=== PATIENT | female | born 1950 | race Caucasian/White ===

== ENCOUNTER 2017-06-11 08:09 | Emergency (ER) | payer BC ==
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
[2017-06-11] MEDS ORDERED: Ibuprofen TAB* 600 MG PO ONE (08:38)
--- NOTE | 2017-06-11 09:39 | RAD ---
INDICATION: Headaches COMPARISON: None TECHNIQUE: Noncontrast axial source images were acquired from the skull base to the vertex. FINDINGS: Ventricles/sulci: The ventricles and cisterns are normal in size and configuration for age. Brain parenchyma: There is no focal parenchymal finding, evidence of intracranial mass, or intracranial mass effect. Intracranial hemorrhage:None. Extra-axial spaces: There are no abnormal extra axial fluid collections or evidence of extra-axial mass. Calvarium: There is no calvarial fracture or other calvarial abnormality. Scalp: There is no evidence of scalp or extracalvarial soft tissue abnormality. Paranasal sinuses/mastoid: The paranasal sinuses and mastoid air cells are clear. Other: None. IMPRESSION: NEGATIVE EXAMINATION
--- NOTE | 2017-06-11 09:43 | RAD ---
HISTORY: Pain, subacute trauma COMPARISONS: None TECHNIQUE: Multiple contiguous axial CT scans were obtained of the cervical spine without intravenous contrast, with coronal and sagittal multiplanar reformations. FINDINGS: BRAIN: The visualized brain is unremarkable CENTRAL CANAL: Evaluation of the central canal is limited on CT technique; however, there is no obvious canalicular mass or epidural hemorrhage. ALIGNMENT: There is straightening of the cervical lordosis. VERTEBRAL BODIES: There is multilevel anterolateral marginal osteophyte formation with sclerotic reactive end plate changes at C4-C5, C5-C6, and C6-C7. JOINTS: There is diffuse uncovertebral osteophytes. There is mild facet osteoarthritis. MUSCULATURE: Unremarkable INTERVERTEBRAL DISCS: There is diffuse loss of intervertebral disc height. AXIAL IMAGES: C2-C3: There is no osseous neural foraminal narrowing or central canal stenosis. C3-C4: There is bilateral uncovertebral hypertrophy. There is moderate right neural foraminal area. There is no osseous central canal stenosis. C4-C5: There is bilateral uncovertebral hypertrophy. There is severe right and mild left neural foraminal and. There is no osseous central canal stenosis. There is bilateral uncovertebral and facet hypertrophy. There is severe right and moderate left neural foraminal narrowing. There is no osseous central canal stenosis. C5-C6: There is bilateral uncovertebral facet hypertrophy. There is severe left neural foraminal area. There is no osseous central canal stenosis. C6-C7: There is no osseous neural foraminal narrowing or central canal stenosis. C7-T1: There is no osseous neural foraminal narrowing or central canal stenosis. SOFT TISSUES: The thyroid gland is heterogeneous and diffusely enlarged. OTHER: None. IMPRESSION: 1. DEGENERATIVE DISC DISEASE AND OSTEOARTHRITIS. 2. THERE IS MULTILEVEL NEURAL FORAMINAL NARROWING DESCRIBED ABOVE. THERE IS NO OSSEOUS CENTRAL CANAL STENOSIS. 3. NO ACUTE OSSEOUS INJURY TO THE CERVICAL SPINE. 4. ENLARGED, HETEROGENEOUS THYROID
[2017-06-11 10:13] VITALS: BP 150/80
== END 2017-06-11 10:13 | disposition home or self-care (01) ==
LOC: UCCORT 08:09
DX: S16.1XXA Strain of muscle, fascia and tendon at neck level, initial encounter (principal); S06.0X0A Concussion without loss of consciousness, initial encounter; Y04.2XXA Assault by strike against or bumped into by another person, initial encounter; Y92.9 Unspecified place or not applicable; M47.812 Spondylosis without myelopathy or radiculopathy, cervical region; G54.2 Cervical root disorders, not elsewhere classified; E04.9 Nontoxic goiter, unspecified; Z88.0 Allergy status to penicillin; Z88.2 Allergy status to sulfonamides
CPT/HCPCS: 70450; 72125; 99202; A9270-GY; G0463

== ENCOUNTER 2017-06-17 11:30 | Emergency (ER) | payer BC ==
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
[2017-06-17] MEDS ORDERED: Ibuprofen TAB* 600 MG PO ONE (14:01)
[2017-06-17 14:09] VITALS: BP 182/89
== END 2017-06-17 14:14 | disposition home or self-care (01) ==
LOC: UCCORT 11:30
DX: S13.9XXD Sprain of joints and ligaments of unspecified parts of neck, subsequent encounter (principal); Y04.2XXD Assault by strike against or bumped into by another person, subsequent encounter; M62.838 Other muscle spasm; Z88.0 Allergy status to penicillin; Z88.2 Allergy status to sulfonamides
CPT/HCPCS: 93005; 99212; A9270-GY; G0463

== ENCOUNTER 2018-06-10 12:13 | Emergency (ER) | payer MEDICARE, BC ==
--- OUTSIDE RECORDS SUMMARY | 2018-06-10 12:52 | XMS REPORT | Continuity of Care Document ---
:1950 External Reference #:[id number] Author Name Julianne Soto Care Team Providers Name Role Phone Julia Null MD Primary Care Physician Unavailable Payers Type Date Identification Numbers Payment Provider Subscriber Effective: 2017 Policy Number: [id number] [employer] Rebecca Carpenter Onset: 2017 Group Number: [id number] [address] [id number] Group Name: fax: [phone] [place] [address] PayID: [id number] Policy Number: [id number] [employer] Rebecca Carpenter PayID: [id number] [address] [address] [place] [address] Advance Directives Description No Information Available Problems Date Description Provider Status Onset: 07/24/2017 Chest pain Efren Auguste M.D., [facility], [facility] Active Family History Date Family Member(s) Problem(s) Comments General sister-HTN Father Anemia and thrombocytopenia Mother Lung Cancer First Brother Hypertension Second Brother Hypertension Social History Type Date Description Comments Sex Unknown Marital Status Lives With Occupation Medically Retired ETOH Use Rarely consumes alcohol Tobacco Use Start: Unknown Patient has never smoked Recreational Drug Use Denies Drug Use Smoking Status Reviewed: 10/29/17 Patient has never smoked Exercise Type/Frequency Exercises regularly isometric routine. walking the dog. Allergies, Adverse Reactions, Alerts Date Description Reaction Status Severity Comments 07/24/2017 Penicillin Active and derivatives of PCN-Hives and swelling 07/24/2017 Sulfa Antibiotics Active 07/24/2017 Isosorbide Active headache Medications Medication Date Status Form Strength Qnty SIG Indications Ordering Provider Vitamin E 0 Active Tablets 400Unit 1 po Unknown 000 daily Vitamin C Active Tablets 500mg 1 by Unknown 000 mouth every day Vitamin B12 Active Tablets ER 1000mcg 1 by Unknown 000 mouth every day Calcium + D + K Active Tablets 750-500-40 1 by Unknown + Zinc 000 mg-Unt-mcg mouth every day Nitroglycerin Hx Tablets 0.4mg 1 sl Unknown 000 - Sub q5mins x3 as 018 needed for chest pain Diltiazem CD Hx Caps ER 120mg 1 by Unknown 000 - 24HR mouth every 018 day Aspirin [address] 81mg 1 by Unknown 000 - mouth every 018 day Pantoprazole Hx Tablets DR 40mg 1 by Unknown Sodium 000 - mouth every 018 day Sertraline HCL Hx Tablets 25mg 1 by Unknown 000 - mouth every 018 day Isosorbide Hx Tablets 30mg 1 by Unknown Dinitrate 000 - mouth every 018 day Acetaminophen Hx Tablets 500mg 1 tabs 3 Unknown Extra Strength 000 - to 4 times 018 daily as needed for pain Ibuprofen Hx Tablets 200mg 1 or 2 Unknown 000 - po as needed 018 Calcium 500 + D Hx Tablets 500-200mg- 1 by Unknown 000 - Unit mouth daily 018 Immunizations Description No Information Available Vital Signs Date Vital Result Comment 05/24/2018 2:24pm Height 60.75 inches 5'0.75" Weight 126.00 lb Heart Rate 68 /min BP Systolic Sitting 136 mmHg BP Diastolic Sitting 92 mmHg Respiratory Rate 12 /min no respiratory difficulties Pain Level 3 BMI (Body Mass Index) 24.0 kg/m2 10/29/2017 9:59am Height 60.25 inches 5'0.25" Weight 124.00 lb Heart Rate 74 /min BP Systolic Sitting 138 mmHg BP Diastolic Sitting 74 mmHg Respiratory Rate 16 /min Pain Level 0 disorientation O2 % BldC Oximetry 98 % Ra BMI (Body Mass Index) 24.0 kg/m2 07/24/2017 9:55am Height 60.25 inches 5'0.25" Weight 124.00 lb Heart Rate 64 /min regular BP Systolic 194 mmHg LA Regular Cuff BP Diastolic 98 mmHg LA Regular Cuff BP Systolic Sitting 178 mmHg Ra Regular Cuff BP Diastolic Sitting 92 mmHg Ra Regular Cuff BP Systolic Standing 170 mmHg Ra Regular Cuff BP Diastolic Standing 98 mmHg Ra Regular Cuff Respiratory Rate 12 /min no respiratory difficulties Pain Level 1 O2 % BldC Oximetry 98 % BMI (Body Mass Index) 24.0 kg/m2 Results Description No Information Available Procedures Date Code Description Status 07/24/2017 27584 EKG Tracing & Interpretation Completed Encounters Type Date Location Provider Dx Diagnosis Office Visit 10/29/2017 [place] Janusz Alcantar, M54.2 Cervicalgia 10:00a Neurologic [facility] Of Hermelinda Warren R42 Dizziness and giddiness S19.89xS Oth injuries of other specified part of neck, sequela Office Visit 07/24/2017 10:00a Cardiology Efren Jacobsen R07.9 Chest pain, Services Of Kelvin Auguste M.D., unspecified AT [facility], [facility] Plan of Treatment 05/24/2018 - Ken Gan, MDM54.2 CervicalgiaFollow up:Follow up: None Needed.
--- OUTSIDE RECORDS SUMMARY | 2018-06-10 12:52 | XMS REPORT | Continuity of Care Document ---
:1950 External Reference #:[id number] Author Name Camila Aragon Care Team Providers Name Role Phone Julia Null MD Primary Care Physician Unavailable Payers Type Date Identification Numbers Payment Provider Subscriber Effective: 2017 Policy Number: [id number] Medicare Rebecca Carpenter PayID: [id number] [address] [place] [address] Effective: 2003 Policy Number: [id number] [facility] Ppo Rebecca Carpenter PayID: [id number] [address] [address] [place] [address] Policy Number: [id number] [employer] 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 Use Social Tobacco Use Start: Unknown Patient has never smoked Smoking Status Reviewed: 07/07/17 Patient has never smoked Allergies, Adverse Reactions, Alerts Date Description Reaction Status Severity Comments 06/23/2017 Penicillin Active 06/23/2017 sulfa Active Medications Medication Date Status Form Strength Qnty SIG Indications Ordering Provider Daptacel 11/23/ Active Suspension 15-23-5LF 0.5 ml im x Julia 2018 -mcg/0.5 1 Hemrelinda Null Vitamin C 08/31/ Active Capsules 500mg daily Julia 2018 Hermelinda Null Vitamin E / Active Capsules Unknown Complete 0000 Vitamin B 12 / Active Lozenges 1000mg 1 by mouth Unknown 0000 every day Calcium Citrate 00/ Active Tablets 315-250mg Unknown + D3 Maximum 0000 -Unit Zinc Ibuprofen 200 00/ Active Tablets 200mg 1 by mouth Unknown 0000 every 6 hours Suphedrine 00/ Active Tablets 30mg 1 cap qid Unknown 0000 Meclizine HCL 11/23/ Hx Tablets 12.5mg 30tab 1-2 tabs by H83.01 Julia 2017 - mouth three Chaka, 01/25/ times a day M.D. 2018 as needed Azithromycin 10/12/ Hx Tablets 250mg 6tabs 2 by mouth H66.92 Julia 2017 - today, 1 by Chaka, 11/23/ mouth day 2 M.D. 2017 thru 5 No Active 08/31/ Hx Unknown Medications 2017 - 2017 Work Note the above M50.13 Julia 2017 - november not Chaka, 01/25/ return to M.D. 2018 work until november. No Active 08/10/ Hx Unknown Medications 2017 - 2017 Nitroglycerin 07/07/ Hx Tablets Sub 0.4mg 30tab 1 under the I25.10 Julia 2017 - tongue as Chaka, 08/10/ needed for .D. 2017 chest pain every 5 minutes pt may keep her medicine with him Work Note The above M50.13 Julia 2017 - is Chaka, 08/10/ medically M.D. 2017 unable to work until further notice. Estimated date of return is 09/03/17 Diltiazem CD 06/23/ Hx Caps ER 120mg qd Julia 2016 24HR Chaka, 08/31/ M.D. 2017 Aspir-81 06/23/ Hx Tablets DR 81mg 90tab every day Julia 2016 Chaka, 07/29/ M.D. 2017 Isosorbide 06/23/ Hx Tablets 30mg 90tab 1 by mouth Julia Dinitrate 2016 - s every day Chaka, M.D. 2017 Pantoprazole 06/23/ Hx Tablets DR 40mg 90tab 1 by mouth Julia Sodium 2016 - every day Chaka, M.D. 2017 Sertraline HCL 06/23/ Hx Tablets 25mg 30tab 1 by mouth F43.21 Julia 2016 - s every day Chaka 07/07/ Hermelinda 2017 Tylenol / Hx Liquid 500mg/15M every 6 Unknown 0000 - L 2017 Motrin Ib / Hx Tablets 200mg 2 every 6 Unknown 0000 - alernating 2017 Tylenol Immunizations Description No Information Available Vital Signs Date Vital Result Comment 05/31/2018 2:17pm BP Systolic 152 mmHg BP Diastolic 84 mmHg Heart Rate 79 /min Body Temperature 97.4 F Height 61 inches 5'1" Weight 126.25 lb BMI (Body Mass Index) 23.9 kg/m2 O2 % BldC Oximetry 97 % 01/25/2018 2:14pm BP Systolic 150 mmHg BP Diastolic 100 mmHg Heart Rate 73 /min Respiratory Rate 18 /min Height 61 inches 5'1" Weight 124.00 lb BMI (Body Mass Index) 23.4 kg/m2 O2 % BldC Oximetry 96 % 12/07/2017 3:06pm BP Systolic 130 mmHg BP Diastolic 80 mmHg Heart Rate 60 /min Respiratory Rate 18 /min Height 61 inches 5'1" Weight 124.00 lb BMI (Body Mass Index) 23.4 kg/m2 O2 % BldC Oximetry 97 % 11/23/2017 3:17pm BP Systolic 118 mmHg BP Diastolic 76 mmHg Heart Rate 76 /min Height 61 inches 5'1" Weight 124.00 lb BMI (Body Mass Index) 23.4 kg/m2 O2 % BldC Oximetry 96 % 10/12/2017 11:49am BP Systolic 160 mmHg BP Diastolic 80 mmHg Heart Rate 79 /min Respiratory Rate 18 /min Height 61 inches 5'1" Weight 124.00 lb BMI (Body Mass Index) 23.4 kg/m2 O2 % BldC Oximetry 96 % 09/24/2017 11:25am BP Systolic 142 mmHg BP Diastolic 78 mmHg Height 61 inches 5'1" Weight 124.00 lb BMI (Body Mass Index) 23.4 kg/m2 08/31/2017 2:17pm BP Systolic 128 mmHg BP Diastolic 80 mmHg Respiratory Rate 18 /min Height 61 inches 5'1" Weight 124.00 lb BMI (Body Mass Index) 23.4 kg/m2 08/10/2017 1:30pm BP Systolic 140 mmHg had coca cola before appt BP Diastolic 90 mmHg had coca cola before appt BP Systolic Recheck 128 mmHg BP Diastolic Recheck 80 mmHg Respiratory Rate 18 /min Height 61 inches 5'1" Weight 124.00 lb BMI (Body Mass Index) 23.4 kg/m2 07/29/2017 12:24pm BP Systolic 132 mmHg BP Diastolic 68 mmHg Height 61 inches 5'1" Weight 124.00 lb BMI (Body Mass Index) 23.4 kg/m2 07/07/2017 3:31pm BP Systolic 142 mmHg BP Diastolic 88 mmHg Respiratory Rate 18 /min Height 61 inches 5'1" Weight 124.00 lb BMI (Body Mass Index) 23.4 kg/m2 06/23/2017 3:18pm BP Systolic 116 mmHg BP Diastolic 70 mmHg Heart Rate 70 /min Respiratory Rate 18 /min Height 61 inches 5'1" Weight 124.00 lb BMI (Body Mass Index) 23.4 kg/m2 O2 % BldC Oximetry 96 % Results Test Date Facility Test Result H/L Range Note CBC W/ Diff & PLT 05/17/2018 [facility] WBC 7.0 thous/L 3.8-10.8 1 [address] [place], [place] [id number] [phone] RBC 4.56 mill/L 3.80-5.10 Hemoglobin 14.3 g/dL 11.7-15.5 Hematocrit 44.4 % 35.0-45.0 MCV 97.3 FL 80.0-100.0 MCH 31.3 pg 27.0-33.0 MCHC 32.2 g/dL 32.0-36.0 RDW 14.3 % 11.0-15.0 Platelet Count 272 thous/L 140-400 MPV 9.7 FL 7.5-12.5 Neutrophils,Absolute 3670 cells/L 8661-9451 Bands,Absolute PENDING Metamyelocytes,Absolute PENDING Myelocytes,Absolute PENDING Promyelocytes,Absolute PENDING Lymphocytes,Absolute 2350 cells/L 850-3900 Monocytes,Absolute 650 cells/L 200-950 Eosinophils,Absolute 250 cells/L 15-500 Basophils,Absolute 50 cells/L 0-200 Blast Cells,Absolute PENDING Nucleated RBC,Absolute PENDING Total Neutrophils,% 53 % 40-75 Bands,% PENDING Metamyelocytes,% PENDING Myelocytes,% PENDING Promyelocytes,% PENDING Total Lymphocytes,% 34 % 12-47 Reactive Lymphocytes PENDING Monocytes,% 9 % 4-12 Eosinophils,% 4 % 0-4 Basophils,% 1 % 0-1 2 Blasts,% PENDING Nucleated RBC PENDING Comment PENDING Basic Metabolic Panel 05/17/2018 [facility] Sodium 142 mmol/L 135-[address] [place], [place] [id number] [phone] Potassium 4.8 mmol/L 3.5-5.3 Chloride 104 mmol/L 98-110 Carbon Dioxide 33 mmol/L High 20-32 3 Calcium 9.6 mg/dL 8.6-10.4 Glucose 88 mg/dL 65-99 4 Urea Nitrogen (BUN) 22 mg/dL 7-25 Creatinine 0.75 mg/dL 0.50-0.99 5 BUN/Creatinine Ratio 28.7 High 6-22 Egfr Non-Afr. Tristanian 84 ML/MIN/1.73M2 > Or=60 Egfr 97 ML/MIN/1.73M2 > Or=60 Lipid Panel 05/17/2018 [facility] Cholesterol 295 mg/dL High <[address] [place] [address] [phone] HDL Cholesterol 72 mg/dL >50 Cholesterol/HDL Ratio 4.1 CALC <5.0 LDL Chol,Calculated 200 mg/dL High 0-100 6 Triglycerides 99 mg/dL <150 Non-HDL Cholesterol 223 mg/dL High <130 7 CBC W/ Diff & PLT 01/19/2018 [facility] WBC 5.7 thous/L 3.8-10.[address] [place] [address] [phone] RBC 4.53 mill/L 3.80-5.10 Hemoglobin 14.7 g/dL 11.7-15.5 Hematocrit 44.5 % 35.0-45.0 MCV 98.1 FL 80.0-100.0 MCH 32.4 pg 27.0-33.0 MCHC 33.0 g/dL 32.0-36.0 RDW 13.9 % 11.0-15.0 Platelet Count 241 thous/L 140-400 Platelet Sufficiency PENDING MPV 9.7 FL 7.5-12.5 Neutrophils,Absolute 2970 cells/L 1050-2833 Bands,Absolute PENDING Metamyelocytes,Absolute PENDING Myelocytes,Absolute PENDING Promyelocytes,Absolute PENDING Lymphocytes,Absolute 1900 cells/L 850-3900 Monocytes,Absolute 590 cells/L 200-950 Eosinophils,Absolute 250 cells/L 15-500 Basophils,Absolute 30 cells/L 0-200 Blast Cells,Absolute PENDING Nucleated RBC,Absolute PENDING Total Neutrophils,% 52 % 40-75 Bands,% PENDING Metamyelocytes,% PENDING Myelocytes,% PENDING Promyelocytes,% PENDING Total Lymphocytes,% 33 % 12-47 Monocytes,% 10 % 4-12 Eosinophils,% 4 % 0-4 Basophils,% 1 % 0-1 8 Blasts,% PENDING Nucleated RBC PENDING RBC Morphology PENDING Anisocytosis PENDING Poikilocytosis PENDING Microcytosis PENDING Macrocytosis PENDING Polychromasia PENDING Hypochromasia PENDING Target Cells PENDING Basophilic Stippling PENDING Comment PENDING Basic Metabolic Panel 01/19/2018 [facility] Sodium 142 mmol/L 135-[address] [place] [address] [phone] Potassium 4.0 mmol/L 3.5-5.3 Chloride 105 mmol/L 98-110 Carbon Dioxide 28 mmol/L 20-31 Calcium 9.6 mg/dL 8.6-10.4 Glucose 76 mg/dL 65-99 9 Urea Nitrogen (BUN) 15 mg/dL 7-25 Creatinine 0.81 mg/dL 0.50-0.99 10 BUN/Creatinine Ratio 18.4 6-22 Egfr Non-Afr. Tristanian 76 ML/MIN/1.73M2 > Or=60 Egfr 88 ML/MIN/1.73M2 > Or=60 Lipid Panel 01/19/2018 [facility] Cholesterol 250 mg/dL High <[address] [place], [place] [id number] [phone] HDL Cholesterol 57 mg/dL >50 Cholesterol/HDL Ratio 4.4 CALC <5.0 LDL Chol,Calculated 166 mg/dL High 0-100 11 Triglycerides 134 mg/dL <150 Non-HDL Cholesterol 193 mg/dL High <130 12 Laboratory test 06/21/2017 [facility] CK 289 U/L High 26-192 13, [address] [place] [address] [phone] Troponin-I 6.260 ng/mL High 15 CBS W/Automated 06/20/2017 [facility] White Blood 9.8 K/uL 3.1-10.[address] [place] [address] [phone] Red Blood Count 4.28 M/uL 3.90-5.40 Hemoglobin 13.9 gm/dL 11.6-15.8 Hematocrit 40.0 % 36.0-46.1 Mean Cell Volume 93.5 fl 80.9-99.0 Mean Corpuscular HGB 32.5 pg 25.9-32.7 Mean Corpuscular HGB Conc 34.8 g/dL High 30.8-34.3 Platelet Count 267 K/uL 155-360 Red Cell Distri Width SD 42.8 fl 3-47 Red Cell Distri Width %CV 12.8 % 11.7-14.4 Mean Platelet Volume 10.2 fL 8.9-12.4 Neut% 59.2 % 40.4-72.8 Lymph % 28.0 % 20.0-42.0 Baca % 10.3 % 4.3-13.2 Eo% 2.1 % 0.0-6.6 Bas% 0.4 % 0.0-1.1 Neut# 5.80 K/uL 1.8-7.0 Lymph # 2.74 K/uL 1.0-4.0 Baca # 1.01 K/uL High 0.3-0.9 Eos # 0.21 K/uL 0.0-0.5 Baso # 0.04 K/uL 0.0-0.1 Laboratory test 06/20/2017 [facility] Ethyl Alcohol < 3.0 mg/dL finding [address] [place] [address] [phone] Comprehensive 06/20/2017 [facility] Glucose 103 mg/ dL 74-106 Metabolic Panel [address] [place] [address] [phone] BUN 13 mg/dL 7-18 Creatinine 0.7 mg/dL 0.6-1.3 Glom Filtration Rate, Estimate >60 mL/min >60 If >60 mL/min >60 16 BUN/Creat 18.5 ratio Sodium 139 mmol/L 136-145 Potassium 3.3 mmol/L Low 3.5-5.1 Chloride 104 mmol/L 98-107 Carbon Dioxide 28 mmol/L 21-32 Anion Gap 7 mEq/L Low 8-16 Calcium 9.0 mg/dL 8.5-10.1 Total Protein 7.0 g/dL 6.4-8.2 Albumin 4.0 g/dL 3.4-5.0 Globulin 3.0 g/dL 1.9-4.3 Alb/Glob 1.3 ratio Bilirubin,Total 0.6 mg/dL 0.2-1.0 Sgot/Ast 26 U/L 15-37 SGPT/Alt 20 U/L 12-78 Alkaline Phosphatase 64 U/L 45-117 Laboratory test finding 06/20/2017 [facility] CK 182 U/L 26-[address] [place] [address] [phone] Troponin-I 2.570 ng/mL High 18 Protime 06/20/2017 [facility] Protime 13.2 seconds 12.0-14.[address] [place] [address] [phone] Inr 1.0 0.9-1.1 19 Laboratory test 06/20/2017 [facility] Act Partial 26.3 seconds 23.4-35.[address] [place] [address] [phone] D-Dimer, Quantitative < 0.22 ug/mL 20 1 FASTING 2 Relative blood cell counts (%) should be compared with absolute cell counts (cells/mcL). Relative counts may not be clinically meaningful if the absolute count of one or more cell type is decreased. Reference ranges for relative cell counts derived from: A Manual of Laboratory and Diagnostics Tests, 9th Ed, Yolette [employer], 2015. Pediatric Reference Intervals, 7th Ed, [employer], 2011. 3 Reference range for high altitude clients: 18-30 mmol/L 4 GLUCOSE REFERENCE RANGE BASED ON FASTING SPECIMEN. 5 The upper reference limit for Creatinine is approximately 13% higher for people identified as -Tristanian. 6 LDL-C levels > or equal to 190 mg/dL may indicate familial hypercholesterolemia (FH). Clinical assessment and measurement of blood lipid levels should be considered for all first degree relatives of patients with an FH diagnosis. Dmitry T,et al.J National Lipid Association Recommendations for Patient-Centered Management of Dyslipidemia:Part 1 Journal of Clinical Lipidology 2015;9(2),129-169. 7 Non-HDL level > uy=436 is very high and may indicate genetic familial hypercholesterolemia (FH). Clinical assessment and measurement of blood lipid levels should be considered for all first-degree relatives of patients with an FH diagnosis. 8 Relative blood cell counts (%) should be compared with absolute cell counts (cells/mcL). Relative counts may not be clinically meaningful if the absolute count of one or more cell type is decreased. Reference ranges for relative cell counts derived from: A Manual of Laboratory and Diagnostics Tests, 9th Ed, [employer]lette [employer], 2015. Pediatric Reference Intervals, 7th Ed, [employer], 2011. 9 GLUCOSE REFERENCE RANGE BASED ON FASTING SPECIMEN. 10 The upper reference limit for Creatinine is approximately 13% higher for people identified as -Tristanian. 11 LDL-C is now calculated using the Danny-Lawson calculation, which is a validated novel method providing better accuracy than the Friedewald equation in the estimation of LDL-C. Danny TOWNSEND et al.ETELVINA.2013;310(19):3208-1193 Desirable range <100 mg/dL for primary prevention; <70 mg/dL for patients with CHD or diabetic patients with >or=2 CHD risk factors. For additional information, please refer to http://education.Modria/faq/NTW662(This link is being provided for informational/educational purposes only.) 12 For patients with diabetes plus 1 major ASCVD risk factor, treating to a non-HDL-C goal of <100 mg/dL (LDL-C of <70 mg/ dL) is considered a therapeutic option. 13 SYNCOPAL EPISODE 14 CHECKED CALLED TROP TO KRISTOPHER Corral RN AT 0112 06[facility]21/17 [facility] 0.0 - 0.045 ng/mL: Normal 0.046 - 0.5 ng/mL: Suggestive 0.6 - 1.5 ng/mL: Consistent 16 Note: Persistent reduction for 3 months or more in an eGFR <60 mL/min/1.73 m2 defines CKD. Patients with eGFR values >/=60 mL/min/1.73 m2 may also have CKD if evidence of persistent proteinuria is present. The original MDRD equation for estimated GFR is not valid for patients less than 18 years of age. Additional information may be found at www.kdoqi.org. 17 CHECKED CALLED TROP TO KRISTOPHER Corral RN AT [phone] 06/20/17 by [facility] 18 0.0 - 0.045 ng/mL: Normal 0.046 - 0.5 ng/mL: Suggestive 0.6 - 1.5 ng/mL: Consistent 19 THERAPEUTIC INR RANGE: 2.0 - 3.0 DVT, Pulmonary embolus, prophylaxis against venous thrombosis or systemic embolization in high risk patients. 2.5 - 3.5 Mechanical heart valves 20 <=0.49 ug/mL - Low likelihood of DIC, DVT or Pulmonary Embolism >0.49 ug/mL - Additional testing should be done to rule out DIC, DVT, or Pulmonary embolism as clinically indicated. ([facility] has established a 97.89% negative predictive value for thrombotic disease when a cutoff value of 0.5 ug/mL is used.) Procedures Description No Information Available Encounters Type Date Location Provider Dx Diagnosis Office Visit 01/25/2018 Main Office Julia Null M.D. 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 abdominal tenderness H81.49 Vertigo of central origin, unspecified ear Office Visit 11/23/2017 3:15p Main Office Julia Null, H83.01 Labyrinthitis, right M.D. ear F43.21 Adjustment disorder with depressed mood M50.13 Cervical disc disorder w radiculopathy, cervicothor region Office Visit 10/12/2017 11:45a Main Office Julia Null F43.10 Post- traumatic stress M.D. disorder, unspecified F07.81 Postconcussional syndrome M50.13 Cervical disc disorder w radiculopathy, cervicothor region H66.92 Otitis media, unspecified, left ear Office Visit 09/24/2017 11:15a Main Office Julia Null F43.10 Post- traumatic stress M.D. disorder, unspecified M50.13 Cervical disc disorder w radiculopathy, cervicothor region F07.81 Postconcussional syndrome Office Visit 08/31/2017 2:15p Main Office Julia Null F43.10 Post- traumatic stress M.D. disorder, unspecified M50.13 Cervical disc disorder w radiculopathy, cervicothor region Office Visit 07/29/2017 11:45a Main Office Julia Null M50.13 Cervical disc M.D. disorder w radiculopathy, cervicothor region F43.10 Post-traumatic stress disorder, unspecified Office Visit 07/07/2017 3:30p Main Office Julia Null M.D. 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 with depressed mood I25.10 Athscl heart disease of [place] coronary artery w/o ang pctrs M54.2 Cervicalgia Plan of Treatment 01/25/2018 - Julia Null M.D.D48.5 Neoplasm of uncertain behavior of skinComments:discussed wearing qxgnvaitV28.5 Hyperlipidemia, unspecifiedComments :continue with avoidance of saturated fats. Will monitor transfat intake. Will try to exercise regularly. Will consider fish oil capsules OTC to lower triglycerides Meditteranean diet advisedFollow up:Followup:. (Follow up)Followup :. (Follow up)6 months with lipid tbnyjscH93.10 Post-traumatic stress disorder, unspecifiedComments:continue with counseling discussed triggers
[2018-06-10 13:25] VITALS: BP 144/69
--- NOTE | 2018-06-10 13:30 | UC ---
Respiratory Complaint HPI - HPI Summary HPI Summary: The patient is a 67-year-old female presents here with a two-week history of cough and congestion. She states that initially felt like it started off in her sinuses but is since moved down to her chest. Seen some wheezing. She states that she does not want to be started on an inhaler. He denies any fever or chills. She has chronic right-sided chest pain. She denies any shortness of breath. - History of Current Complaint Chief Complaint: UCRespiratory Stated Complaint: COUGH CONGESTION Time Seen by Provider: 06/10/18 13:29 Hx Obtained From: Patient Hx Last Menstrual Period: n/a Onset/Duration: Gradual Onset, Lasting Weeks Timing: Constant Severity Initially: Mild Severity Currently: Moderate Pain Intensity: 3 Pain Scale Used: 0-10 Numeric Character: Cough: Nonproductive Aggravating Factors: Nothing Associated Signs And Symptoms: Positive: Wheezing, URI, Nasal Congestion, Sinus Discomfort - Allergies/Home Medications Allergies/Adverse Reactions: Allergies Allergy/AdvReac Type Severity Reaction Status Date / Time Penicillins Allergy Severe Swelling, Verified 06/10/18 13:08 body rash, itching Sulfa (Sulfonamide Allergy Unknown Verified 06/10/18 13:08 Antibiotics) Reaction Details- possible rash Home Medications: Home Medications Ascorbic Acid TAB* [Vitamin C TAB*] 500 mg PO DAILY 06/10/18 [History Confirmed 06/10/18] Calcium Magnesium Vitamin D 1 tab PO DAILY 06/10/18 [History Confirmed 06/10/18] Vitamin B Complex TAB* [B Complex-50*] 1 tab PO DAILY 06/10/18 [History Confirmed 06/10/18] PMH/Surg Hx/FS Hx/Imm Hx Previously Healthy: Yes Other History Of: Negative For: Anticoagulant Therapy - Surgical History Surgical History: Yes Surgery Procedure, Year, and Place: [facility] [place] 2016- no stents per patient - Family History Known Family History: Positive: Hypertension - Social History Alcohol Use: Occasionally Substance Use Type: None Smoking Status (MU): Never Smoked Tobacco Review of Systems All Other Systems Reviewed And Are Negative: Yes Constitutional: Positive: Negative Skin: Positive: Negative Eyes: Positive: Negative ENT: Positive: Ear Ache, Nasal Discharge, Sinus Congestion, Sinus Pain/ Tenderness Respiratory: Positive: Cough Cardiovascular: Positive: Negative Gastrointestinal: Positive: Negative Genitourinary: Positive: Negative Motor: Positive: Negative Neurovascular: Positive: Negative Musculoskeletal: Positive: Negative Neurological: Positive: Negative Psychological: Positive: Negative Physical Exam Triage Information Reviewed: Yes Appearance: Well-Appearing, No Pain Distress, Well-Nourished Vital Signs: Initial Vital Signs Temp 98.3 F 06/10/18 13:10 Pulse 70 06/10/18 13:10 Resp 12 06/10/18 13:10 BP 144/69 06/10/18 13:10 Pulse Ox 98 06/10/18 13:10 Vital Signs Reviewed: Yes Eyes: Positive: Conjunctiva Clear ENT: Positive: Hearing grossly normal, Nasal congestion, Nasal drainage, Sinus tenderness. Negative: Uvula midline Neck: Positive: Supple, Nontender, No Lymphadenopathy Respiratory: Positive: No respiratory distress, Wheezing - with forced expiration Cardiovascular: Positive: RRR, No Murmur Musculoskeletal: Positive: ROM Intact, No Edema Neurological: Positive: Alert Psychological Exam: Normal Skin Exam: Normal UC Diagnostic Evaluation - Laboratory O2 Sat by Pulse Oximetry: 98 - normal/not hypoxic Respiratory Course/Dx - Differential Dx/Diagnosis Provider Diagnosis: Acute bronchitis Discharge - Sign-Out/Discharge Documenting (check all that apply): Patient Departure All imaging exams completed and their final reports reviewed: No Studies - Discharge Plan Condition: Stable Disposition: HOME Prescriptions: Azithromycin TAB* [Zithromax TAB*] 250 mg PO DAILY #6 tab Benzonatate CAP* [Tessalon CAP*] 100 - 200 mg PO TID PRN #28 cap PRN Reason: Cough Patient Education Materials: Acute Bronchitis (ED) Referrals: Julia Null MD [Primary Care Provider] - 5 Days (if not better) Additional Instructions: recheck for new or worsening symptoms - Billing Disposition and Condition Condition: STABLE Disposition: Home
== END 2018-06-10 13:50 | disposition home or self-care (01) ==
LOC: UCCORT 12:13
DX: J20.9 Acute bronchitis, unspecified (principal); Z88.0 Allergy status to penicillin; Z88.3 Allergy status to other anti-infective agents
CPT/HCPCS: 99212; G0463

== ENCOUNTER 2019-05-06 19:48 | Emergency (ER) | payer MEDICARE, BC ==
--- OUTSIDE RECORDS SUMMARY | 2019-05-06 20:06 | XMS REPORT | Continuity of Care Document ---
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 Onset: 02/09/2018 Social History Type Date Description Comments Sex Unknown Tobacco Use Start: Unknown Never Smoked Cigarettes ETOH Use Denies alcohol use Tobacco Use Start: Unknown Patient denies history of smoking Smoking Status Reviewed: 04/05/19 Patient denies history of smoking Allergies, Adverse Reactions, Alerts Active Allergies Reaction Severity Comments Date Penicillin 02/09/2018 Sulfa Drugs 02/09/2018 Medications Active Medications SIG Qnty Indications Ordering Date Provider Lisinopril 1 by mouth every 30tabs I10 Roman Slade MD 04/05/2019 5mg Tablets day Vitamin E 1 daily martha, 02/09/2018 400mg Capsules Hermelinda Alfredo Calicum, Magnesium, 1 daily martha, 02/09/2018 Zinc, Vit D Hermelinda Alfredo Vitamin B12 1 by mouth once jordan, 02/09/2018 1000mcg Tablets a day Hermelinda Alfredo ER Vitamin C 1 by mouth every encmartha, 02/09/2018 Capsules benton Alfredo M.D. Cyclobenzaprine HCL 1 tab tid prn Unknown 5mg Tablets Lidocaine 1 patch daily as [place], 5% Patches needed, remove Preeti Pelletier M.D. after 12 hours Motrin Ib 1-2 tab by mouth Unknown 200mg Tablets every 6 hours as needed TENS Therapy Pain apply to Unknown Relief affected area Device every day as needed for pain Immunizations Description No Information Available Vital Signs Date Vital Result Comment 04/05/2019 2:02pm BP Systolic 162 mmHg BP Diastolic 86 mmHg BP Systolic Sitting Right Arm 154 mmHg BP Diastolic Sitting Right Arm 94 mmHg Body Temperature 98.4 F Heart Rate 75 /min Respiratory Rate 18 /min Height 61.5 inches 5'1.50" Weight 124.25 lb BMI (Body Mass Index) 23.1 kg/m2 BSA (Body Surface Area) 1.55 m2 [place] body weight in kilograms 49 kg O2 % BldC Oximetry 98 % Ra 03/02/2019 3:12pm BP Systolic 158 mmHg BP Diastolic 89 mmHg Body Temperature 98.9 F Heart Rate 75 /min Respiratory Rate 18 /min Height 61.5 inches 5'1.50" Weight 128.38 lb BMI (Body Mass Index) 23.9 kg/m2 BSA (Body Surface Area) 1.57 m2 [place] body weight in kilograms 49 kg O2 % BldC Oximetry 97 % Ra Results Test Date Facility Test Result H/L Range Note CBC 03/03/[address] [facility] [address] White Blood 6.3 K/uL Normal 3.1-10.7 1 W/Automated [address] [place] [address] [phone] Red Blood Count 4.69 M/uL Normal 3.90-5.40 Hemoglobin 15.1 gm/dL Normal 11.6-15.8 Hematocrit 44.9 % Normal 36.0-46.1 Mean Cell Volume 95.7 fl Normal 80.9-99.0 Mean Corpuscular HGB 32.2 pg Normal 25.9-32.7 Mean Corpuscular HGB Conc 33.6 g/dL Normal 30.8-34.3 Platelet Count 297 K/uL Normal 155-360 Red Cell Distri Width SD 45.8 fl Normal 36-47 Red Cell Distri Width %CV 13.2 % Normal 11.7-14.4 Mean Platelet Volume 11.3 fl Normal 8.9-12.4 Neut% 47.1 % Normal 40.4-72.8 Lymph % 34.2 % Normal 20.0-42.0 [place] % 12.7 % Normal 4.3-13.2 Eo% 4.9 % Normal 0.0-6.6 Bas% 0.8 % Normal 0.0-1.1 Immature Grans 0.3 % Normal 0.0-5.0 NRBC % 0.0 /100WBC < 10/ 100 WBC Neut# 2.98 K/uL Normal 1.8-7.0 Lymph # 2.16 K/uL Normal 1.0-4.0 [place] # 0.80 K/uL Normal 0.3-0.9 Eos # 0.31 K/uL Normal 0.0-0.5 Baso # 0.05 K/uL Normal 0.0-0.1 Immature Grans Absolute 0.02 K/uL NRBC # 0.00 K/uL Comprehensive 03/03/[address] Glucose 76 mg/dL Normal 74-106 Metabolic Panel [address] [place] [address] [phone] BUN 17 mg/dL Normal 7-18 Creatinine 0.9 mg/dL Normal 0.6-1.3 Glom Filtration Rate, Estimate >60 mL/min >60 If >60 mL/min >60 2 BUN/Creat 18.8 ratio Sodium 139 mmol/L Normal 136-145 Potassium 3.6 mmol/L Normal 3.5-5.1 Chloride 105 mmol/L Normal 98-107 Carbon Dioxide 32 mmol/L Normal 21-32 Anion Gap 2 mEq/L Low 8-16 Calcium 9.1 mg/dL Normal 8.5-10.1 Total Protein 7.6 g/dL Normal 6.4-8.2 Albumin 3.9 g/dL Normal 3.4-5.0 Globulin 3.7 g/dL Normal 1.9-4.3 Alb/Glob 1.1 ratio Bilirubin,Total 0.7 mg/dL Normal 0.2-1.0 Sgot/Ast 23 U/L Normal 15-37 SGPT/Alt 27 U/L Normal 12-78 Alkaline Phosphatase 66 U/L Normal 45-117 LDL Cholesterol 03/03/[address] Cholesterol 278 mg/dL High < 200 3 Profile [address] [place] [address] [phone] Triglycerides 78 mg/dL <150 4 HDL Cholesterol 64 mg/dL >40 5 LDL-Cholesterol 198 mg/dL < 100 6 Glycohemoglobin 03/03/[address] Glycohemoglobin 5.4 % Normal 4.2-6.3 [address] [facility] (A1c) [place] [address] [phone] eAG 108 mg/dL T7/TSH 03/03/[address] T3 Uptake 34 % Normal 31-[address] [place] [address] [phone] Thyroxine (T4) 9.5 g/dL Normal 4.7-13.3 T7 3.23 g/dL Low 5.0-12.0 Thyroid Stim Hormone 1.72 uIU/mL Normal 0.30-4.20 Laboratory test 03/03/[address] Hepatitis C 0.1 s/corat 0.0- 0.9 [address] [place] [address] [place] [address] [phone] 1 Z13.0 Z13.6 Z13.1 Z13.29 Z11.59 2 Note: Persistent reduction for 3 months or more in an eGFR <60 mL/min/1.73 m2 defines CKD. Patients with eGFR values >/=60 mL/min/1.73 m2 may also have CKD if evidence of persistent proteinuria is present. The original MDRD equation for estimated GFR is not valid for patients less than 18 years of age. Additional information may be found at www.kdoqi.org. 3 Reference Guidelines*: Desirable: ........... < 200 mg/dL Borderline High: ..... 200-239 mg/dL High: ................ >= 240 mg/dL * The National Cholesterol Education Program (NCEP) 4 Reference Guidelines*: Normal: ............. < 150 mg/dL Borderline High: .... 150-199 mg/dL High: ............... 200-499 mg/dL Very High: .......... > 500 mg/dL * Source: National Cholesterol Education Program (NCEP) 5 Reference Guidelines*: Low HDL: ..... < 40 mg/dL Normal: ..... 40-60 mg/dL Desirable: ... > 60 mg/dL *The National Cholesterol Education Program(NCEP) 6 Reference Guidelines*: Optimal:........... <100 mg/dL Near Optimal....... 100-129 mg/dL Borderline High.... 130-159 mg/dL High............... 160-189 mg/dL Very High.......... >=190 mg/dL * Source: National Cholesterol Education Program (NCEP) 7 Elevated levels of HbA1c suggest the need for more aggressive treatment of glycemia. The [place] Diabetes Association recommends that a primary goal of therapy should be a HbA1c of <7% and that physicians should re-evaluate the treatment regimen in patients with HbA1c values consistently >8%. 8 INFCE Result Units: s/co ratio Negative: < 0.8 Indeterminate: 0.8 - 0.9 Positive: > 0.9 The CDC recommends that a positive HCV antibody result be followed up with a HCV Nucleic Acid Amplification test (198291). Performed at: RN - [facility] [address] [id number] Bar Gauger And Lubricator Tender: Kelly Mercer MD, Phone: [phone] Procedures Date Code Description Status 04/04/2019 02800 EKG Interpretation And Report Only Completed Medical Devices Description No Information Available Encounters Type Date Location Provider Dx Diagnosis Office Visit 04/05/2019 Family Roman Carballo MD I10 Essential ( primary) 2:10p Herber HERNANDEZ hypertension E78.5 Hyperlipidemia, unspecified Office Visit 03/02/2019 3:10p Family Medicine Roman Slade, Z00.01 Encounter for Herber HERNANDEZ MD general adult medical exam w abnormal findings M21.619 Bunion of unspecified foot I10 Essential (primary) hypertension M54.12 Radiculopathy, cervical region Z13.1 Encounter for screening for diabetes mellitus Z13.0 Encntr screen for dis of the bld/bld-form org/immun mechnsm Z13.29 Encounter for screening for oth suspected endocrine disorder Z13.6 Encounter for screening for cardiovascular disorders Z11.59 Encounter for screening for other viral diseases Z12.11 Encounter for screening for malignant neoplasm of colon Assessments Date Code Description Provider 04/05/2019 I10 Essential (primary) hypertension Roman Slade MD 04/05/2019 E78.5 Hyperlipidemia, unspecified Roman Slade MD 04/04/2019 Z01.810 Encounter for preprocedural cardiovascular Husam Soto MD examination 03/02/2019 Z00.01 Encounter for general adult medical examination Roman Slade MD with abnormal findings 03/02/2019 M21.619 Bunion of unspecified foot Roman Slade MD 03/02/2019 I10 Essential (primary) hypertension Roman Slade MD 03/02/2019 M54.12 Radiculopathy, cervical region Roman Slade MD 03/02/2019 Z13.1 Encounter for screening for diabetes mellitus Roman Slade MD 03/02/2019 Z13.0 Encounter for screening for diseases of the blood Roman Slade MD and blood-forming organs and certain disorders involving the immune mechanism 03/02/2019 Z13.29 Encounter for screening for other suspected Roman Slade MD endocrine disorder 03/02/2019 Z13.6 Encounter for screening for cardiovascular Roman Slade MD disorders 03/02/2019 Z11.59 Encounter for screening for other viral diseases Roman Slade MD 03/02/2019 Z12.11 Encounter for screening for malignant neoplasm of Roman Slade MD colon Plan of Treatment Future Appointment(s):05/03/2019 2:10 pm - Roman Slade MD at [facility]04/05/2019 - Roman Slade MDI10 Essential (primary) hypertensionNew Medication:Lisinopril 5 mg - 1 by mouth every dayE78.5 Hyperlipidemia, unspecified Functional Status Description No Information Available Mental Status Description No Information Available Referrals Refer to Reason for Referral Status Appt Date Sergio Gordonddie Closed 03/17/[address] [place] [address] [phone]
--- OUTSIDE RECORDS SUMMARY | 2019-05-06 20:06 | XMS REPORT | Continuity of Care Document ---
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 Onset: 02/09/2018 Social History Type Date Description Comments Sex Unknown Tobacco Use Start: Unknown Never Smoked Cigarettes ETOH Use Denies alcohol use Tobacco Use Start: Unknown Patient denies history of smoking Smoking Status Reviewed: 03/02/19 Patient denies history of smoking Allergies, Adverse Reactions, Alerts Active Allergies Reaction Severity Comments Date Penicillin 02/09/2018 Sulfa Drugs 02/09/2018 Medications Active Medications SIG Qnty Indications Ordering Date Provider Vitamin E 1 daily Donte, 02/09/2018 400mg Capsules Hermelinda Alfredo Calicum, Magnesium, 1 daily Donte, 02/09/2018 Zinc, Vit D Hermelinda Alfredo Vitamin B12 1 by mouth once a oDnte, 02/09/2018 1000mcg Tablets day Hermelinda Alfredo ER Vitamin C 1 by mouth every Donte, 02/09/2018 Capsules day Hermelinda Alfredo Cyclobenzaprine HCL 1 tab tid prn Unknown 5mg Tablets Lidocaine 1 patch daily as [place], 5% Patches needed, remove Preeti Pelletier M.D. after 12 hours Motrin Ib 1-2 tab by mouth Unknown 200mg Tablets every 6 hours as needed TENS Therapy Pain Relief apply to affected Unknown area every day Device as needed for pain Immunizations Description No Information Available Vital Signs Date Vital Result Comment 03/02/2019 3:12pm BP Systolic 158 mmHg BP Diastolic 89 mmHg Body Temperature 98.9 F Heart Rate 75 /min Respiratory Rate 18 /min Height 61.5 inches 5'1.50" Weight 128.38 lb BMI (Body Mass Index) 23.9 kg/m2 BSA (Body Surface Area) 1.57 m2 [place] body weight in kilograms 49 kg O2 % BldC Oximetry 97 % Ra 02/09/2018 8:20am BP Systolic 136 mmHg BP Diastolic 78 mmHg Body Temperature 97.8 F Heart Rate 69 /min Respiratory Rate 18 /min Weight 124.12 lb O2 % BldC Oximetry 97 % Results Test Date Facility Test Result H/L Range Note CBC 03/03/[address] [facility] [address] White Blood 6.3 K/uL Normal 3.1-10.7 1 W/Automated [address] Count Diff [place], [place] [id number] [phone] Red Blood Count 4.69 M/uL Normal 3.90-5.40 [...] 40.4-72.8 Lymph % 34.2 % Normal 20.0-42.0 Centre % 12.7 % Normal 4.3-13.2 Eo% 4.9 % Normal 0.0-6.6 Bas% 0.8 % Normal 0.0-1.1 Immature Grans 0.3 % Normal 0.0-5.0 NRBC % 0.0 /100WBC < 10/ 100 WBC Neut# 2.98 K/uL Normal 1.8-7.0 Lymph # 2.16 K/uL Normal 1.0-4.0 Centre # 0.80 K/uL Normal 0.3-0.9 Eos # 0.31 K/uL Normal 0.0-0.5 Baso # 0.05 K/uL Normal 0.0-0.1 Immature Grans Absolute 0.02 K/uL NRBC # 0.00 K/uL Comprehensive 03/03/[address] [facility] [address] Glucose 76 mg/dL Normal 74-106 Metabolic Panel [address] [place] [address] [phone] BUN 17 mg/dL Normal 7-18 Creatinine 0.9 [...] 66 U/L Normal 45-117 LDL Cholesterol 03/03/[address] [address] Cholesterol 278 mg/dL High < 200 3 Profile [address] [place] [address] [phone] Triglycerides 78 mg/dL <150 4 HDL Cholesterol 64 mg/dL >40 5 LDL-Cholesterol 198 mg/dL < 100 6 Glycohemoglobin 03/03/[address] [address] Glycohemoglobin 5.4 % Normal 4.2-6.3 [address] [facility] (A1c) [place] [address] [phone] eAG 108 mg/dL T7/TSH 03/03/[address] T3 Uptake 34 % Normal 31-39 [address] [place] [address] [phone] Thyroxine (T4) 9.5 g/dL Normal 4.7-13.3 T7 3.23 g/dL Low 5.0-12.0 Thyroid Stim Hormone 1.72 uIU/mL Normal 0.30-4.20 Laboratory test 03/03/[address] [address] Hepatitis C 0.1 s/corat 0.0- 0.[address] [facility] [place] [place] [address] [phone] 1 Z13.0 Z13.6 Z13.1 Z13.29 Z11.59 2 [...] for more aggressive treatment of glycemia. The [place] Diabetes Association recommends that a primary goal [...] with a HCV Nucleic Acid Amplification test (260290). Performed at: - [facility] [address] [id number] Feed Weigher: Kelly Mercer MD, Phone: [phone] Procedures Description No Information Available Medical Devices Description No Information Available Encounters Type Date Location Provider Dx Diagnosis Office Visit 03/02/2019 Family Medicine Roman Slade MD Z00.01 Encounter for 3:10p [address] general adult medical exam w abnormal findings [...] of colon Assessments Date Code Description Provider 03/02/2019 Z00.01 Encounter for general adult medical [...] Slade MD colon Plan of Treatment Future Appointment(s):04/05/2019 2:10 pm - Roman Slade MD at [facility] Functional Status Description No Information Available Mental Status Description No Information Available Referrals Refer to Reason for Referral Status Appt Date Trenton Gordon Scheduled 03/17/[address] [place] [id number] [phone]
--- OUTSIDE RECORDS SUMMARY | 2019-05-06 20:06 | XMS REPORT | Continuity of Care Document ---
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 Onset: 02/09/2018 Social History Type Date Description Comments Sex Unknown Tobacco Use Start: Unknown Never Smoked Cigarettes ETOH Use Denies alcohol use Tobacco Use Start: Unknown Patient denies history of smoking Smoking Status Reviewed: 05/03/19 Patient denies history of smoking Allergies, Adverse [...] Available Vital Signs Date Vital Result Comment 05/03/2019 2:10pm BP Systolic Sitting Left Arm 146 mmHg BP Diastolic Sitting Left Arm 84 mmHg Body Temperature 98.7 F Heart Rate 74 /min Respiratory Rate 18 /min Height 61.5 inches 5'1.50" Weight 124.25 lb BMI (Body Mass Index) 23.1 kg/m2 BSA (Body Surface Area) 1.55 m2 [place] body weight in kilograms 49 kg 04/05/2019 2:02pm BP Systolic 162 mmHg BP Diastolic 86 mmHg BP Systolic Sitting Right Arm 154 mmHg BP Diastolic Sitting Right Arm 94 mmHg Body Temperature 98.4 F Heart Rate 75 /min Respiratory Rate 18 /min Height 61.5 inches 5'1.50" Weight 124.25 lb BMI (Body Mass Index) 23.1 kg/m2 BSA (Body Surface Area) 1.55 m2 [place] body weight in kilograms 49 kg O2 % BldC Oximetry 98 % Ra Results Test Acquired Date Facility Test Result H/L Range Note CBC 03/03/[address] [facility] [address] White Blood 6.3 K/uL Normal 3.1-10.7 1 W/Automated [address] Count Diff [place], [place] [id number] [phone] Red Blood Count 4.69 M/uL Normal 3.90-5.40 [...] 40.4-72.8 Lymph % 34.2 % Normal 20.0-42.0 [place] % 12.7 % Normal 4.3-13.2 Eo% 4.9 % Normal 0.0-6.6 Bas% 0.8 % Normal 0.0-1.1 Immature Grans 0.3 % Normal 0.0-5.0 NRBC % 0.0 /100WBC < 10/ 100 WBC Neut# 2.98 K/uL Normal 1.8-7.0 Lymph # 2.16 K/uL Normal 1.0-4.0 [place] # 0.80 K/uL Normal 0.3-0.9 Eos # 0.31 K/uL Normal 0.0-0.5 Baso # 0.05 K/uL Normal 0.0-0.1 Immature Grans Absolute 0.02 K/uL NRBC # 0.00 K/uL Comprehensive 03/03/[address] Glucose 76 mg/dL Normal 74-106 Metabolic Panel [address] [place] [address] [phone] BUN 17 mg/dL Normal 7-18 Creatinine 0.9 [...] 66 U/L Normal 45-117 LDL Cholesterol 03/03/[address] Cholesterol 278 mg/dL High < 200 3 Profile [address] [place] [address] [phone] Triglycerides 78 mg/dL <150 4 HDL Cholesterol 64 mg/dL >40 5 LDL-Cholesterol 198 mg/dL < 100 6 Glycohemoglobin 03/03/[address] Glycohemoglobin 5.4 % Normal 4.2-6.3 7 A1c 4077 [facility] (A1c) [place], [place] [address] [phone] eAG 108 mg/dL T7/TSH 03/03/[address] T3 Uptake 34 % Normal 31-39 [address] [place] [address] [phone] Thyroxine (T4) 9.5 g/dL Normal 4.7-13.3 T7 3.23 g/dL Low 5.0-12.0 Thyroid Stim Hormone 1.72 uIU/mL Normal 0.30-4.20 Laboratory test 03/03/[address] Hepatitis C 0.1 s/corat 0.0- 0.9 [address] [place] [address] [place] [address] [phone] 1 Z13.0 Z13.6 Z13.1 Z13.29 Z11.59 2 [...] for more aggressive treatment of glycemia. The [place] Diabetes [employer] recommends that a primary goal [...] with a HCV Nucleic Acid Amplification test (564662). Performed at: RN - [facility] [address] [id number] Doctor Of Dental Medicine: Kelly Mercer MD, Phone: [phone] Procedures Date Code Description Status 04/04/2019 82298 EKG Interpretation And Report Only Completed Medical Devices Description No Information Available Encounters Type Date Location Provider Dx Diagnosis Office Visit 05/03/2019 Family Roman Carballo MD I10 Essential ( primary) 2:10p Herber HERNANDEZ hypertension Office Visit 04/05/2019 Family Roman Carballo MD I10 Essential ( primary) 2:10p Herber HERNANDEZ hypertension E78.5 Hyperlipidemia, unspecified Office Visit 03/02/2019 3:10p Family Roman Carballo, Z00.01 Encounter for Herber HERNANDEZ MD general [...] of colon Assessments Date Code Description Provider 05/03/2019 I10 Essential (primary) hypertension Roman Slade MD 04/05/2019 I10 Essential (primary) hypertension Roman Slade [...] Slade MD colon Plan of Treatment Future Appointment(s):08/23/2019 2:10 pm - Roman Slade MD at [facility]05/03/2019 - Roman Slade MDI10 Essential (primary) hypertension Functional Status Description No Information Available Mental Status Description No Information Available Referrals Refer to Reason for Referral Status Appt Date Trenton Gordon Closed 03/17/[address] [place], [place] [address] [phone]
[2019-05-06 20:12] VITALS: BP 157/70
--- NOTE | 2019-05-06 20:27 | UC ---
Skin Complaint HPI - HPI Summary HPI Summary: Patient is a 68yo female presenting with possible infected tick bite. Patient states she noticed tick bite yesterday and it was removed during her PT session. She saw her primary doctor who told her to look for s/s of infection. She notes increasing pain, redness, and warmth of the area that was not present when tick bite first discovered. She also noted small amount of drainage from the area earlier this evening and she applied baking soda to the area. Denies further drainage. Denies bleeding. Denies n/v/d. Denies fever and chills. - History of Current Complaint Chief Complaint: UCSkin Stated Complaint: TICK BITE Hx Obtained From: Patient Hx Last Menstrual Period: n/a Pain Intensity: 4 - Allergy/Home Medications Allergies/Adverse Reactions: Allergies Allergy/AdvReac Type Severity Reaction Status Date / Time Penicillins Allergy Severe Swelling, Verified 05/06/19 20:07 body rash, itching Sulfa (Sulfonamide Allergy Unknown Verified 05/06/19 20:07 Antibiotics) Reaction Details- possible rash Home Medications: Home Medications Cyclobenzaprine TAB* [Flexeril 10 MG TAB*] 1 tab TID PRN 05/06/19 [History Confirmed 05/06/19] Lisinopril TAB* [Prinivil TAB 5 MG*] 1 tab DAILY 05/06/19 [History Confirmed 07/24] PMH/Surg Hx/FS Hx/Imm Hx Cardiovascular History: Hypertension Psychological History: Anxiety Other History Of: Negative For: Anticoagulant Therapy - Surgical History Surgical History: Yes Surgery Procedure, Year, and Place: [facility]ER[facility] [place] 2016- no stents per patient - Family History Known Family History: Positive: Hypertension - Social History Alcohol Use: Occasionally Substance Use Type: None Smoking Status (MU): Never Smoked Tobacco Review of Systems All Other Systems Reviewed And Are Negative: Yes Constitutional: Positive: Negative. Negative: Fever, Chills Skin: Positive: Other - redness, warmth, drainage of tick bite ENT: Positive: Negative Respiratory: Positive: Negative Cardiovascular: Positive: Negative Gastrointestinal: Positive: Negative. Negative: Vomiting, Nausea Neurological: Positive: Negative Physical Exam Triage Information Reviewed: Yes Appearance: Well-Appearing, No Pain Distress, Well-Nourished Vital Signs: Initial Vital Signs Temp 98 F 05/06/19 20:08 Pulse 69 05/06/19 20:08 Resp 16 05/06/19 20:08 BP 157/70 05/06/19 20:08 Pulse Ox 99 05/06/19 20:08 Vital Signs Reviewed: Yes Eyes: Positive: Conjunctiva Clear ENT: Positive: Hearing grossly normal Neck exam: Normal Neck: Positive: Supple, Nontender, No Lymphadenopathy Respiratory Exam: Normal Respiratory: Positive: Lungs clear, Normal breath sounds, No respiratory distress Cardiovascular Exam: Normal Cardiovascular: Positive: RRR Neurological: Positive: Alert Psychological: Positive: Age Appropriate Behavior Skin: Positive: Other - erythema and warmth behind R ear surrounding central red spot where tick was presumably attached. no active drainage. no fluctuance. Course/Dx - Course Course Of Treatment: I treated with doxy for infected tick bite due to penicillin and sulfa allergies. Patient states she cannot have anything that resembles penicillin. EDucated patient on cellulitis and s/s of worsening infection. Instructed her to apply warm compresses and to follow up with PCP if symptoms persist or go to ED if they worsen. Patient states known htn and is currently seeing her doctor for management of bp. Patient voiced understanding and agreed with the treatment plan. - Diagnoses Provider Diagnosis: Infected tick bite Discharge ED - Sign-Out/Discharge Documenting (check all that apply): Patient Departure All imaging exams completed and their final reports reviewed: No Studies - Discharge Plan Condition: Stable Disposition: HOME Prescriptions: DOXYcycline CAP(*) [DOXYcycline 100MG CAP(*)] 100 mg PO BID #10 cap Patient Education Materials: Cellulitis (ED) Referrals: Roman Slade MD [Primary Care Provider] - If Needed Additional Instructions: As discussed, take Doxycycline as prescribed for the treatment of your skin infection. Keep the area clean and do not apply any alcohol or baking soda to the area. You may apply warm compresses 2-3 times daily. Follow up with your primary care physician as listed below if your symptoms persist. Go to the emergency room if you experience fever, increasing redness and warmth to the area, drainage, or nausea and vomiting. - Billing Disposition and Condition Condition: STABLE Disposition: Home
== END 2019-05-06 20:36 | disposition home or self-care (01) ==
LOC: UCCORT 19:48
DX: S00.461A Insect bite (nonvenomous) of right ear, initial encounter (principal); I10 Essential (primary) hypertension; Z88.0 Allergy status to penicillin; Z88.2 Allergy status to sulfonamides; Z79.899 Other long term (current) drug therapy; W57.XXXA Bitten or stung by nonvenomous insect and other nonvenomous arthropods, initial encounter; Y92.9 Unspecified place or not applicable
CPT/HCPCS: 99212; G0463